=== PATIENT | female | born 1950 | race Caucasian/White ===

== ENCOUNTER → 2020-07-21 | Outpatient (CLI) | payer MEDICARE ==
--- NOTE | 2020-07-21 12:10 | Diagnostic Imaging Report ---
INDICATION: Knee pain. COMPARISON: None available. TECHNIQUE: Three radiographs of the right knee dated 07/21/2020. FINDINGS: No acute fracture or dislocation. No destructive osseous process. Moderate medial joint space narrowing and mild lateral joint space narrowing. Tricompartmental osteophytosis, greatest within the medial compartment. No significant joint effusion. Minimal chondrocalcinosis of the menisci. IMPRESSION: No acute osseous abnormality with moderate degenerative changes, greatest within the medial compartment. Mild chondrocalcinosis of the menisci, which can be seen with CPPD deposition disease, though can also simply be seen with osteoarthritis. Dictated by: Dictated on workstation # [id number]
== END ==
LOC: RAD FS 09:56
PROVIDERS: ATTEND Nurse Practitioner
DX: M11.261 Other chondrocalcinosis, right knee (principal)
CPT/HCPCS: 73562

== ENCOUNTER → 2020-11-26 | Outpatient (CLI) | payer MEDICARE ==
--- NOTE | 2020-11-26 10:48 | Diagnostic Imaging Report ---
INDICATION: Right thumb pain. TIME OF EXAM: 9:18 AM. FINDINGS: There are significant degenerative changes at the 1st CMC joint with joint space narrowing and marginal osteophyte formation. There are triscaphe joint degenerative changes. The 1st metacarpal as well as phalanges of the thumb appear to be intact. There are interphalangeal joint degenerative changes present. No osseous erosive changes are identified. No fractures are identified. IMPRESSION: Chronic changes. No acute bony abnormality is detected. Dictated by: Dictated on workstation # [id number]
== END ==
LOC: RAD FS 08:54
PROVIDERS: ATTEND Nurse Practitioner
DX: M79.644 Pain in right finger(s) (principal)
CPT/HCPCS: 73140

== ENCOUNTER 2020-12-31 17:36 | Emergency (ER) | payer MEDICARE ==
--- NOTE | 2020-12-31 17:49 | ED Integumentary General ---
General Chief Complaint: Skin/Wound Problems Stated Complaint: RIGHT HAND PAIN History of Present Illness Date Seen by Provider: Dec 31, 2020 Time Seen by Provider: 17:44 Initial Comments 70-year-old female presents for recheck of postop wound. Patient had a extensive hand surgery [address] Martinez at [facility] in [facility]. Patient comes in today because she is continued have some pain some swelling and developed a few blisters/bullae on her fingers. She denies any numbness and tingling of her fingers, she has full range of motion of her fingers. She called the orthopedic surgeons yesterday and told them about this and they said that was normal postop. She was seen by urgent care earlier today. She is still concerned so she presented to the ER. She has no fever chills or warmth to the area. Allergies and Home Medications Patient Home Medication List Home Medication List Reviewed: Yes Review of Systems Review of Systems Constitutional: see HPI EENTM: no symptoms reported Respiratory: no symptoms reported Cardiovascular: no symptoms reported Gastrointestinal: no symptoms reported Genitourinary: no symptoms reported Musculoskeletal: see HPI Skin: see HPI Past Dnwcwot-Uaxnbl-Zzylhz Hx Past Med/Social Hx: Reviewed Nursing Past Med/Soc Hx Physical Exam Vital Signs Capillary Refill : General Appearance: WD/WN, no apparent distress Cardiovascular: normal peripheral pulses Respiratory: lungs clear, normal breath sounds Gastrointestinal: non tender, soft Extremities: swelling (Right hand, postop thumb spica cast/splint in place) Skin: other (Mild vesicles/papules on her second and third digits. Looks more consistent with a contact dermatitis) Skin Problem Character: rash Progress/Results/Core Measures Progress Progress Note : Progress Note Patient with no signs of compartment syndrome or significant compression from her cast. She has good cap refill, good finger movement, no numbness tingling or decreased sensation. The lesions look more consistent with possible contact dermatitis. I recommend she use a Benadryl topical cream and called her surgeon in the morning for an appointment to have it rechecked prior to the weekend Departure Impression Primary Impression: Encounter for wound re-check Disposition: HOME, SELF-CARE Condition: Stable Departure-Patient Inst. Referrals: JO BRONSON MD (PCP/Family) Primary Care Physician Add. Discharge Instructions: Call Dr Martinez office in morning to arrange a follow up time. All discharge instructions reviewed with patient and/or family. Voiced understanding. JAMES MEJÍA DO Dec 31, 2020 17:49
[2020-12-31 17:52] VITALS: BP 176/81
== END 2020-12-31 18:05 | disposition home or self-care (01) ==
LOC: EDUNIT# 17:36 → ER FS 17:38
DX: Z48.00 Encounter for change or removal of nonsurgical wound dressing (principal)
CPT/HCPCS: 99282

== ENCOUNTER 2022-05-29 09:26 | Emergency (ER) | payer MEDICARE, OTHER ==
[~2022-05-29] VITALS: Ht 160 cm; Wt 83.7 kg
--- NOTE | 2022-05-29 09:35 | ED Lower Extremity ---
General Chief Complaint: Lower Extremity Stated Complaint: RT KNEE PAIN History of Present Illness Date Seen by Provider: May 29, 2022 Time Seen by Provider: 09:30 Initial Comments 72-year-old female presents with right ankle pain. Patient is proximately 3 weeks post right knee replacement that was done in [place]. Patient reports that yesterday she started having significant swelling and pain in her right ankle. She denies any known injury. The pain/swelling is located on the lateral aspect. Patient also complaining of "legs spasm". Patient does not have any fevers, chills. 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 Allergies and Home Medications Allergies Coded Allergies: No Known Drug Allergies (Unverified , 05/29/22) Patient Home Medication List Home Medication List Reviewed: Yes Review of Systems Constitutional: No chills, No fever EENTM: no symptoms reported Respiratory: no symptoms reported Cardiovascular: no symptoms reported Gastrointestinal: no symptoms reported Genitourinary: no symptoms reported Musculoskeletal: joint pain, joint swelling, muscle cramps Skin: see HPI Psychiatric/Neurological: No Symptoms Reported Past Jioffum-Ygjhhi-Urymei Hx Seasonal Allergies Seasonal Allergies: No Past Medical History Surgeries: Yes Hysterectomy, Orthopedic, Thyroidectomy, Tubal Ligation Respiratory: No Cardiac: No Neurological: No Genitourinary: No Gastrointestinal: No Musculoskeletal: No Endocrine: No HEENT: No Cancer: No Psychosocial: No Integumentary: No Blood Disorders: No Physical Exam Vital Signs Vital Signs - First Documented 05/29/22 09:30 Temp 36.6 Pulse 78 Resp 16 B/P (MAP) 141/73 (95) Pulse Ox 100 O2 Delivery Room Air Capillary Refill : Height, Weight, BMI Height: '" Weight: lbs. oz. kg; BMI Method: General Appearance: no apparent distress HEENT: PERRL/EOMI Neck: full range of motion, supple Cardiovascular: normal peripheral pulses, regular rate, rhythm Respiratory: chest non-tender, lungs clear Gastrointestinal: soft; No distended Hips: bilateral hip non-tender Knees: right knee other (Normal postop swelling/ecchymosis, no signs of infection, incision clean dry and intact) Ankles: right ankle pain, right ankle soft tissue tenderness, right ankle swelling Neurologic/Psychiatric: alert, normal mood/affect, oriented x 3 Skin: normal color, warm/dry Progress/Results/Core Measures Results/Orders Lab Results Laboratory Tests Test 05/29/22 10:00 Range/Units White Blood Count 8.1 4.3-11.0 10^3/uL Red Blood Count 4.07 3.80-5.11 10^6/uL Hemoglobin 12.5 11.5-16.0 g/dL Hematocrit 36 35-52 % Mean Corpuscular Volume 89 80-99 fL Mean Corpuscular Hemoglobin 31 25-34 pg Mean Corpuscular Hemoglobin Concent 34 32-36 g/dL Red Cell Distribution Width 11.8 10.0-14.5 % Platelet Count 349 130-400 10^3/uL Mean Platelet Volume 9.0 9.0-12.2 fL Immature Granulocyte % (Auto) 0 % Neutrophils (%) (Auto) 72 42-75 % Lymphocytes (%) (Auto) 16 12-44 % Monocytes (%) (Auto) 9 0-12 % Eosinophils (%) (Auto) 2 0-10 % Basophils (%) (Auto) 1 0-10 % Neutrophils # (Auto) 5.9 1.8-7.8 10^3/uL Lymphocytes # (Auto) 1.3 1.0-4.0 10^3/uL Monocytes # (Auto) 0.7 0.0-1.0 10^3/uL Eosinophils # (Auto) 0.1 0.0-0.3 10^3/uL Basophils # (Auto) 0.1 0.0-0.1 10^3/uL Immature Granulocyte # (Auto) 0.0 0.0-0.1 10^3/uL Sodium Level 136 135-145 MMOL/L Potassium Level 3.6 3.6-5.0 MMOL/L Chloride Level 96 L 98-107 MMOL/L Carbon Dioxide Level 28 21-32 MMOL/L Anion Gap 12 5-14 MMOL/L Blood Urea Nitrogen 16 7-18 MG/DL Creatinine 0.93 0.60-1.30 MG/DL Estimat Glomerular Filtration Rate 65 BUN/Creatinine Ratio 17 Glucose Level 120 H 70-105 MG/DL Calcium Level 9.1 8.5-10.1 MG/DL Corrected Calcium 9.3 8.5-10.1 MG/DL Magnesium Level 1.9 1.6-2.4 MG/DL Total Bilirubin 0.4 0.1-1.0 MG/DL Aspartate Amino Transf (AST/SGOT) 18 5-34 U/L Alanine Aminotransferase (ALT/SGPT) 12 0-55 U/L Alkaline Phosphatase 185 H 40-136 U/L Total Protein 7.6 6.4-8.2 GM/DL Albumin 3.8 3.2-4.5 GM/DL My Orders Orders - JAMES MEJÍA DO Cbc With Automated Diff (05/29/22 09:39) Comprehensive Metabolic Panel (05/29/22 09:39) Magnesium (05/29/22 09:39) Ankle 3 View Right (05/29/22 09:39) Vital Signs/I&O 05/29/22 09:30 Temp 36.6 Pulse 78 Resp 16 B/P (MAP) 141/73 (95) Pulse Ox 100 O2 Delivery Room Air Progress Progress Note : Progress Note Patient shows no acute fracture or bony abnormality on x-ray. I suspect that she has a ankle sprain due to gait changes from recent knee surgery. We will place her in a air stirrup. There is no acute abnormalities on electrolytes. Discussed with her supportive care for muscle cramping. She is to follow-up w ith her primary care provider towards the end of next week. Patient stable and discharged home Diagnostic Imaging Diagonstic Imaging: Xray Plain Films/CT/US/NM/MRI: ankle Comments Date of Exam:05/29/22 ANKLE 3 VIEW RIGHT INDICATION: Pain and swelling. FINDINGS: The alignment is normal. There are degenerative changes. There is some soft tissue swelling. No acute fracture or dislocation. IMPRESSION: Degenerative changes and soft tissue swelling; however, no acute fracture or dislocation. Departure Impression Primary Impression: Sprain and strain of ankle Disposition: 01 HOME, SELF-CARE Condition: Stable Departure-Patient Inst. Referrals: JO BRONSON MD (PCP/Family) Primary Care Physician Patient Instructions: Sprain (DC) Add. Discharge Instructions: Please wear soft air stirrup while ambulating for the next 5 to 6 days then as needed. Follow-up with your primary care provider towards the end of next week. All discharge instructions reviewed with patient and/or family. Voiced un derstanding. JAMES MEJÍA DO May 29, 2022 09:35
--- NOTE | 2022-05-29 10:08 | Diagnostic Imaging Report ---
INDICATION: Pain and swelling. FINDINGS: The alignment is normal. There are degenerative changes. There is some soft tissue swelling. No acute fracture or dislocation. IMPRESSION: Degenerative changes and soft tissue swelling; however, no acute fracture or dislocation. Dictated by: Dictated on workstation # [id number]
[2022-05-29 10:09] LABS: BASOPHILS # (AUTO) 0.1 10^3/uL (0.0-0.1); BASOPHILS % (AUTO) 1 % (0-10); EOSINOPHILS # (AUTO) 0.1 10^3/uL (0.0-0.3); EOSINOPHILS % (AUTO) 2 % (0-10); HEMATOCRIT 36 % (35-52); HEMOGLOBIN 12.5 g/dL (11.5-16.0); LYMPHOCYTES # (AUTO) 1.3 10^3/uL (1.0-4.0); LYMPHOCYTES % (AUTO) 16 % (12-44); MEAN CORPUSCULAR HEMOGLOBIN 31 pg (25-34); MEAN CORPUSCULAR HGB CONC 34 g/dL (32-36); MEAN CORPUSCULAR VOLUME 89 fL (80-99); MONOCYTES # (AUTO) 0.7 10^3/uL (0.0-1.0); MONOCYTES % (AUTO) 9 % (0-12); NEUTROPHILS # (AUTO) 5.9 10^3/uL (1.8-7.8); NEUTROPHILS % (AUTO) 72 % (42-75); PLATELET COUNT 349 10^3/uL (130-400); WHITE BLOOD COUNT 8.1 10^3/uL (4.3-11.0)
[2022-05-29 10:25] LABS: BILIRUBIN,TOTAL 0.4 MG/DL (0.1-1.0); CALCIUM 9.1 MG/DL (8.5-10.1); CREATININE SERUM 0.93 MG/DL (0.60-1.30); MAGNESIUM 1.9 MG/DL (1.6-2.4); POTASSIUM 3.6 MMOL/L (3.6-5.0)
[2022-05-29 10:26] LABS: ALBUMIN 3.8 GM/DL (3.2-4.5); TOTAL PROTEIN 7.6 GM/DL (6.4-8.2)
[2022-05-29 10:50] VITALS: BP 141/73
== END 2022-05-29 10:50 | disposition home or self-care (01) ==
LOC: EDUNIT# 09:26 → ER FS 09:29
DX: S96.911A Strain of unspecified muscle and tendon at ankle and foot level, right foot, initial encounter (principal); X58.XXXA Exposure to other specified factors, initial encounter
CPT/HCPCS: 36415; 73610; 80053; 83735; 85025